=== PATIENT | female | born 1955 | race Caucasian/White ===

== ENCOUNTER 2020-04-04 15:05 | Outpatient (CLI) | payer MEDICARE, SELFPAY ==
--- NOTE | 2020-04-04 15:08 | ECG_ITS ---
Measurements Intervals [place] Rate: 73 P: 50 MT: 139 QRS: -21 QRSD: 106 T: 5 QT: 400 QTc: 442 Interpretive Statements SINUS RHYTHM POOR R WAVE PROGRESSION, ANTERIOR LEADS BORDERLINE T WAVE ABNORMALITY- ANT/INF LEADS BASELINE ARTIFACT- I, II, III, AVR, AVL, AVF BORDERLINE ECG Electronically Signed On 04-04-2020 15:32:29 CDT by Ramo Schuster D.O.
== END 2020-04-04 15:06 | disposition home or self-care (01) ==
LOC: ANHSURGERY 15:08
PROVIDERS: Visit Provider Otolaryngology
DX: Z01.818 Encounter for other preprocedural examination (principal); I10 Essential (primary) hypertension
CPT/HCPCS: 93005

== ENCOUNTER 2020-04-05 02:48 | Outpatient (CLI) | payer MEDICARE, SELFPAY ==
[2020-04-06 13:48] LABS: SARS-CoV-2 RNA PCR Negative
== END 2020-04-05 02:49 | disposition home or self-care (01) ==
LOC: ANHCOVIDDT 02:49
PROVIDERS: Visit Provider Otolaryngology
DX: Z01.812 Encounter for preprocedural laboratory examination (principal); Z11.59 Encounter for screening for other viral diseases
CPT/HCPCS: 87635; C9803; U0003

== ENCOUNTER 2020-04-08 01:04 | Day surgery (SDC) | payer MEDICARE, SELFPAY ==
[2020-04-01 13:51] VITALS: BMI 33.9
[2020-04-08] VITALS (8 sets, daily range): BP systolic 155–188; BP diastolic 74–95; PULSE 72–94; RESP 11–16; TEMP 36.2–36.9; O2SAT 92–100
--- NOTE | 2020-04-08 10:23 | WPDANESEPPF ---
Anes - Initial Pre Proc Eval Procedure: Operation Date: 04/08/20 12:00 Proposed Procedures p Bilateral Sphenoidotomy, Bilateral Maxillary Antrostomy, Left Ethmoidectomy, Possible Right Ethmoidectomy, Bilateral Turbinate Reduction, Right Mindi Bullosa Resection, Possible Left Mindi Bullosa Resection, Possible Septoplasty, Fusion Protocol - Jaycob Petersen MD Date/Time: 04/08/20 10:23 Surgeon: Jaycob Petersen MD Pre Op Diagnosis: Chronic Sinusitis Patient Data Age: 65 Gender: F Height: 5 ft 6.5 in Weight: 96.69 kg Allergies Allergy/AdvReac Type Severity Reaction Status Date / Time Penicillins Allergy Mild Unknown Verified 04/08/20 10:14 Home Medications Medication Instructions Recorded Confirmed Type calcium carbonate-vitamin D3 1 cap PO BID 04/01/20 04/01/20 History [Calcium 600 + D(3)] lisinopril 30 mg PO DAILY 04/01/20 04/01/20 History meloxicam 7.5 mg PO DAILY 04/01/20 04/01/20 History modafinil 200 mg PO BID 04/01/20 04/01/20 History omeprazole 20 mg PO DAILY 04/01/20 04/01/20 History oxybutynin chloride 15 mg PO DAILY 04/01/20 04/01/20 History vitamins A,C,T-diem-pvctxg 1 tablet PO BID 04/01/20 04/01/20 History [PreserVision AREDS] Patient hx anesthesia problems: none Family hx anesthesia problems: none [facility] Past Medical History Medical History (Updated 04/08/20 @ 10:23 by Micheal Whaley MD) GERD (gastroesophageal reflux disease) HTN (hypertension) Obesity Surgical History Surgical History (Updated 04/08/20 @ 10:24 by Micheal Whaley MD) Hx of tonsillectomy Social History Social History Smoking status: Never smoker Second hand tobacco smoke exposure: No Alcohol intake: current Drinks per week: 2 Alcohol use details: BEER Living arrangements: alone Spiritual care concerns: No Anes - Eval Final PreProcedure Day of Procedure 04/08/20 10:23 Patient weight: obese Heart: regular rate and rhythm Lungs: clear to auscultation Airway: Mallampati scale class II Neurological: alert and oriented Last oral intake: >/= 8 hours ASA classification: II Emergent: no Anesthetic plan: proceed Anesthesia type and monitoring: general ETT and standard monitoring Informed Consent: The patient's anesthetic plan and its attendant risks and benefits were discussed with the patient/family/POA. Questions were solicited and answers provided to the satisfaction of the patient/family/POA.
[2020-04-08] MEDS: LACTATED RINGERS 1,000 ML 30 ML IV CONT ×2 (10:30→11:57)
[2020-04-08] MEDS: OXYMETAZOLINE HCL 0.05% NAS 15 ML BTL (*BKC) 1 SPRAY NASAL (10:33)
[2020-04-08] MEDS: ACETAMINOPHEN 500 MG TABLET 1000 MG PO (10:33)
--- NOTE | 2020-04-08 10:51 | WPDHPUPDATE1 ---
History and Physical Update Update Date/Time: 04/08/20 10:51 Plan for bilateral maxillary antrostomy, sphenoidotomy, total ethmoidectomy, turbinoplasty, possible septoplasty, possible bilateral gaby bullosectomy. History and Physical has been reviewed, including an updated exam of the patient. There are NO changes in the patient's condition. Risks, benefits, and alternatives have been discussed and questions answered. Patient agrees to proceed with procedure.
[2020-04-08] MEDS: LIDO 1%/EPINEPHRINE 1:100,000 20 ML VIAL 10 ML INFILTRATE (11:05)
[2020-04-08] MEDS: CLINDAMYCIN 900 MG/NS 50 ML 900 MG/50 ML PIGGYBACK 50 MG IVPB (11:12)
--- NOTE | 2020-04-08 11:51 | P.OP_ITS ---
Procedure Note - Detailed Date of procedure: 04/08/20 Pre-op diagnosis: Chronic Sinusitis Post-op diagnosis: same Procedure performed: Left maxillary antrostomy, left total ethmoidectomy, bilateral gaby bullosectomy, bilateral inferior turbinoplasty. Description of procedure: On the date of procedure the patient was met in the preoperative area and risk and benefits of the procedure reviewed with the patient as documented in the H&P and they elected to proceed with surgery. Patient was brought back to the operating room by the anesthesia team and underwent general endotracheal anesthesia. Once an adequate plane of anesthesia was obtained a timeout was performed to assure the patient identification the patient here to be performed were correct. They were.The patient was then prepped and draped in the normal fashion for endoscopic sinus surgery. The diffusion image guidance system was calibrated and used for the entire case. Afrin-soaked pledgets were placed in the nasal cavities bilaterally. The entire case was performed under endoscopic visualization. Nasal endoscopy was performed at the beginning of the case. 1% lidocaine with 1:100,000 epinephrine was then injected into the root of the middle turbinate and lateral nasal wall. Attention was first directed towards the left side. The middle turbinate was medialized and the osteomeatal complex was identified with a akil probe. Using a 90 degree backbiter, the uncinate process was reflected anteriorly and removed using a combination of sharp and powered dissection. The maxillary antrostomy was then created and widened by identifying the natural ostia and opening the sinus with straight krystyna-cut forceps, backbiter, and microdebrider. Purulent fluid filled the left maxillary sinus. This was suctioned and copiously irrigated. Some fungal element was encountered and removed. Continuing with the microdebrider, the anterior ethmoid bulla was opened. Careful dissection was carried out posteriorly, through the basal lamella and posterior ethmoid c ells until the sphenoid rostrum was identified. The left gaby bullosa was medialized and fractured. There was no significant sinus disease on the right. The decision was made to address the right gaby bullosa with medialization and crushing the gaby. A left sided merogel was placed for hemostasis and healing. Lastly, the bilateral inferior turbiantes were reduced submucosally using 2mm microdebrider and then outfractured with a sayer elevator. This significantly opened the airway. At this point, the procedure was concluded. Care the patient was transferred back to the anesthesia team and the patient was awoke in the operating room and transferred back to the PACU in stable condition. Jaycob Petersen M.D. 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
== END 2020-04-08 13:42 | disposition home or self-care (01) ==
PROVIDERS: Visit Provider Otolaryngology
PROC: (CPT 31255; principal; 2020-04-08 12:00)
DX: J01.21 Acute recurrent ethmoidal sinusitis (principal); J01.11 Acute recurrent frontal sinusitis; J01.01 Acute recurrent maxillary sinusitis; J01.31 Acute recurrent sphenoidal sinusitis; B48.8 Other specified mycoses; J34.2 Deviated nasal septum; I10 Essential (primary) hypertension; K21.9 Gastro-esophageal reflux disease without esophagitis; E66.9 Obesity, unspecified; Z68.34 Body mass index [BMI] 34.0-34.9, adult
CPT/HCPCS: 31255; 31256; 61782; 31240; 30140; 87635; 88305; 88311; 88312; 93005; A9270; C9803; J0330; J1100; J2405; J2704; J3010; J7120; U0003